=== PATIENT | female | born 1970 | race Hispanic/Latino ===

== ENCOUNTER 2016-10-11 19:22 | Emergency (ER) | payer OTHER ==
[~2016-10-11] VITALS: Ht 160 cm; Wt 81.8 kg
[2016-10-11 19:34] VITALS: BP 144/88; PULSE 75; RESP 16; O2SAT 100
--- NOTE | 2016-10-11 20:40 | ED.REPORT ---
HPI-Back Pain 40 and Over Date of Service Oct 11, 2016 ED Provider: Jaciel Mendiola MD Pt is a healthy 45 y/o female presenting to the ED c/o right flank pain with radiation to the right leg and groin onset 1 hour ago. She has had similar pain in the past and was diagnosed with small kidney stones. Pt c/o associated nausea , dysuria, urinary frequency. She denies hematuria, urinary or bladder incontinence, fever, chills, lower extremity weakness. Nursing Notes Stated Complaint: RIGHT SIDE BACK PAIN Chief Complaint: Back Pain or Injury Nursing Notes Reviewed: Yes Allergies: Uncoded Allergies: No Known Allergies (Allergy, Unknown, 02/09/04) TB IMMUNIZATION (Adverse Reaction, Unknown, 01/27/15) Scheduled Sulfamethoxazole/Trimeth 800-160 mg (Bactrim DS) 1 Each Tablet 1 TABLET PO BID Tamsulosin (Flomax) 0.4 Mg Capsule 0.4 MG PO DAILY Scheduled PRN Hydrocodone-Acetaminophen 5-325 mg (Hydrocodone-Acetaminophen 5-325 mg) 1 Each Tablet 1 TABLET PO Q4H PRN PRN For Pain General Time Seen by MD: 20:22 Chief Complaint Flank pain right Hx Obtained From: Patient Arrived By: Walk-in Sudden in Onset?: No Onset Occurred: 1 - 4 hours ago Symptom Duration: Since onset Caused by: Spontaneous/no mechanism Location: : Flank right Quality: Painful Severity: Current: Moderate Severity: Maximum: Moderate Recent Healthcare: Previous diagnosis Similar Sx Previous: Yes Past Medical History Past Medical History Hx kidney stones Hx UTI Past Surgical History denies Smoking History Never Smoker Social History Alcohol Use: Denies alcohol use Drug Use: Denies drug use Other Social History: Occupation lives with family Ambulatory Status Independent Review of Systems Constitutional: Denies: Chills, Fever Respiratory: Denies: Non-productive cough, Shortness of breath Cardiovascular: Denies: Chest pain, Dyspnea on exertion GI: Reports: Nausea, Denies: Abdominal pain, Diarrhea, Vomiting Female: Reports: Dysuria, Flank pain, Urinary frequency, Denies: Hematuria Neurologic: Denies: Bladder dysfunction, Bowel dysfunction, Numbness, Weakness Complete sys rev & neg: except as marked. Physical Exam Initial Vital Signs Vital Signs (First) Date Time Temp Pulse Resp B/P Pulse Ox O2 Delivery O2 Flow Rate FiO2 10/11/16 19:34 37.2 75 16 144/88 100 Room Air Initial VS: Reviewed, Vital signs normal Head / Eyes: Atraumatic, Normocephalic, PERRL ENT: Mucous membranes moist, Conjunctiva normal, No scleral icterus Neck: Supple, Full range of motion Extremities: Vascular intact, Neuro intact, No swelling, No tenderness Skin: Warm, Dry, No cyanosis Psychiatric: Mood/affect normal, Behavior normal, Normal thought content General/Constitutional: Awake, Alert, Cooperative, Not toxic appearing Distress / Hydration: Positive: Distress mild Appearance / Presentation: Positive: Uncomfortable Laying on left side Respiratory / Chest: Atraumatic, Breath sounds NL, Breath sounds = bilat, No respiratory distress, No rales, No rhonchi, No wheezing, No retractions, No stridor, No chest tenderness, No chest wall deformity, No crepitus Cardiovascular: Heart rate NL, Regular rhythm, Heart sounds NL, No gallop, No murmurs, No rubs, Cap refill not delayed, Peripheral circulation NL Abdomen: Atraumatic, Soft, Non-tender, No guarding, No rebound, No distention, No palpable mass Back: Full range of motion, Painless range of motion, No CVA tenderness Neurologic: Oriented X3, Speech NL, No motor deficits, No sensory deficits, CN II - XII intact, Cerebellar NL, Memory NL Interpretation & Diagnostics Interpretation & Diagnostics: CT KUB no contrast: IMPRESSION: 1. 4 mm diameter proximal right ureteral calculus associated with mild right hydronephrosis. Dictated by: Gerhard Farias M.D. on 10/11/2016 at 21:55 Approved by: Gerhard Farias M.D. on 10/11/2016 at 21:57 Lab Results Interpretation Result Diagram: 10/11/16 2100 10/11/16 2100 Test 10/11/16 20:30 10/11/16 21:00 Urine Color Yellow (YELLOW) Urine Appearance Hazy (CLEAR,HAZY) Urine pH 5.0 (5.0-8.0) Urine Specific [place] 1.030 (1.003-1.035) Urine Protein Tracemg/dL (NEG,TRACE) Urine Glucose (UA) Negativemg/dL (NEGATIVE) Urine Ketones Negativemg/dL (NEGATIVE) Urine Occult Blood Large (NEGATIVE) Urine Nitrite Negative (NEGATIVE) Urine Bilirubin Negative (NEGATIVE) Urine Urobilinogen Normalmg/dL (NORMAL) Urine Leukocyte Esterase Trace (NEGATIVE) Urine RBC 3-10/hpf (0-2) Urine WBC 0-5/hpf (0-5) Urine Epithelial Cells Few/hpf (NONE-MOD) Urine Crystals None seen (NONE SEEN) Urine Bacteria Few/hpf (NONE-FEW) Urine Hyaline Casts None/lpf (NONE) Urine Granular Casts None seen (NONE SEEN) Urine Waxy Casts None seen (NONE SEEN) Urine Red Blood Cell Casts None seen (NONE SEEN) Urine White Blood Cell Casts None seen (NONE SEEN) Urine Mucus Present (None Seen) Urine Trichomonas None seen (NONE SEEN) Urine Yeast None (NONE SEEN) Urinalysis Comment None Urine Culture Reflexed Indicated White Blood Count 11.8th/mm3 (3.8-10.1) Red Blood Count 4.95mil/mm3 (3.90-5.20) Hemoglobin 13.8g/dL (12.0-15.6) Hematocrit 41.1% (35.0-46.0) Mean Corpuscular Volume 83.0fL (81-100) Mean Corpuscular Hemoglobin 27.9pg (27.0-35.0) Mean Corpuscular Hemoglobin Concent 33.6% (32.0-37.0) Red Cell Distribution Width 13.7% (12.3-15.4) Platelet Count 265bil/L (150-400) Neutrophils (%) (Auto) 79.2% (40-74) Lymphocytes (%) (Auto) 13.8% (14-46) Monocytes (%) (Auto) 5.7% (4-12) Eosinophils (%) (Auto) 0.9% (0-5) Basophils (%) (Auto) 0.2% (0-3) Sodium Level 137mEq/L (134-144) Potassium Level 4.3mEq/L (3.5-5.2) Chloride Level 102mEq/L (97-108) Carbon Dioxide Level 22mmol/L (18-29) Blood Urea Nitrogen 14mg/dL (6-24) Creatinine 0.80mg/dL (0.57-1.00) Estimat Glomerular Filtration Rate 112mL/min (>59) Glucose Level 116mg/dL (60-99) Calcium Level 9.4mg/dL (8.5-10.1) Total Bilirubin 0.2mg/dL (0.0-1.2) Aspartate Amino Transf (AST/SGOT) 13U/L (0-50) Alanine Aminotransferase (ALT/SGPT) 12U/L (0-32) Alkaline Phosphatase 55U/L (25-150) Total Protein 7.5g/dL (6.4-8.4) Albumin 4.0g/dL (3.4-5.0) ECG Interpretation Time: 20:59 Interpreted by: ED physician Normal ECG Interpretation: Normal ECG w/ rate of... (66), Normal rate, Normal sinus rhythm, No acute ischemic changes, Normal QRS, Normal axis, Normal intervals, Adequate tracing Re-Eval/Medical Decision Med Decision/Clinical Course Patient is a generally healthy 45-year-old male with a history of kidney stones who presents the emergency department with colicky right flank pain and mild UTI symptoms. [id number] urine testing is equivocal for urinary tract infection. Here in the emergency room she is afebrile and hemodynamically stable though quite uncomfortable. Therefore, I treated with IV fluids, Zofran for nausea and hydromorphone for pain. She reported significant symptomatic improvement. Given possible concurrent UTI in the setting of likely kidney stone I did off to obtain a CT KUB and that should she have a significant obstructing ureteral stone in the setting of infection she may require emergent intervention. CT scan was obtained as above and demonstrated a relatively small right ureteral stone. Serial abdominal examinations were benign and she tolerated firm palpation in all 4 quadrants. There is no evidence of acute surgical abdomen. Labs notable as below: CBC: leukocytosis of 11.8, stable HCT CMP: Unremarkable, good renal function UA: large blood, trace leukocyte esterase, few bacteria HCG neg Here in the emergency room the patient remained afebrile, nontoxic in appearance and in no apparent distress. Patient was discussed with urologist on -call and we reviewed her presentation today. She is not felt to require admission and urinalysis is thought to likely be related to contamination as opposed to true UTI. That being said we have opted to treat her with 1 g of ceftriaxone and a course of Bactrim. Additionally she will be treated with Flomax, [place] for pain. She is advised to follow-up closely in urology clinic. Follow-up and return precautions were reviewed in detail including any worsening signs of UTI, fevers, chills or abdominal pain. She was provided with a urinary strainer. Prior to discharge follow-up and return precautions were reviewed in detail with the patient who verbalized understanding and agreement with the plan. The patient was discharged in stable condition. Re-Evaluation/Progress : Time of Eval: 21:57 Re-Evaluation/Progress Note: Pt rechecked. Informed pt of plan for treatment. Pt understands and agrees with plan for treatment. F/U instructions and RTER warnings given. All questions addressed. Consultation : Referral / Consult Name: Yoli Sauer MD Consulted With: Urology Call Returned at: 21:56 Flight Surveyor: Agrees with eval, Agrees with plan Note: Recommends d/c with abx. Counseled Regarding: Diagnosis, Lab results, Need for follow-up, When/why to return to ED Discharge & Departure Impression: Primary Impression: Calculus of proximal right ureter Additional Impressions: Hydronephrosis, right Hematuria Urinary tract infection Urinary tract infection type: site unspecified Hematuria presence: with hematuria Qualified Code: N39.0 - Urinary tract infection, site not specified Disposition: Home Discharge Condition All VS Reviewed: Yes Condition: Stable Patient Instructions: Nephrolithiasis (ED) Additional Instructions: Thank you for seeking care at the emergency room. It is difficult for us to make definitive diagnoses in the ED but we believe that you are experiencing pain from a kidney stone in your right ureter. The stone is quite small (4 mm) and should pass on its own. It may take a few days to pass since it is much closer to the kidney than the bladder. Our primary goal today in the ED was to evaluate you for any life-threatening conditions. Your evaluation was reassuring. You will be discharged with a prescription for antibiotics. Take these as directed. Take 1 [place] every 6 hours as needed for severe pain. See instructions below. Use the urine strainer as directed. You should follow-up with Urology next week. Call Wednesday to set up an appointment. The referral number can be found below. You should return to the ED immediately if you develop fever, chills, worsening pain, persistent vomiting, severe pain with urination, urinary frequency, lightheadedness, weakness or any other concerning signs or symptoms. Thank you for letting us partake in your care today. You have been prescribed a narcotic for pain relief. These drugs are usually combined with acetaminophen (Tylenol#3, Percocet, Darvocet, Anexsia, Vicodin) or aspirin (Empirin#3, Percodan, Synalogs-DC) for increased effect. Narcotics act on the central nervous system to reduce pain; they also impair mental alertness and physical abilities. We advise you not to drink alcohol, drive a car, or operate dangerous equipment when you are taking these drugs. You can lessen stomach irritation from your medicine by taking it with meals or a full glass of water. Common side effects of narcotics are: Nausea and vomiting, heartburn, constipation, dizziness, sleepiness, and mood changes. If you have bothersome side effects or symptoms of an allergic reaction (itching, hives, rash), stop taking your medicine and call your doctor or the emergency room right away. Please keep your narcotic medicine well out of the reach of children. Referrals: Yoli Sauer MD [facility] Scribe Attestation Portions of this note were transcribed by Srini Mcmahon. I, Dr. Mendiola personally performed the history, physical exam and medical decision-making; I reviewed and confirmed the accuracy of the information in the transcribed note. Signed by Joseph Jung, 10/11/16 - 2099 Jaciel Mendiola MD Oct 11, 2016 20:40 SRINI MCMAHON Oct 11, 2016 20:41
[2016-10-11] MEDS ORDERED: 0.9% Sodium Chloride 1,000 ML IV ONE ×2 (20:41→23:05)
[2016-10-11] MEDS ORDERED: Ondansetron 2 mg/mL 2 mL Inj IVPUSH ONE (20:45)
[2016-10-11 20:59] LABS: APPEARANCE,URINE HAZY (CLEAR,HAZY); COLOR,URINE YELLOW (YELLOW); OCCULT BLOOD,URINE LARGE (NEGATIVE); UROBILINOGEN,URINE NORMAL (NORMAL)
[2016-10-11] MEDS: HYDROmorphone 0.5 mg/0.5 mL iSecure Syringe IVPUSH PRN ×2 (21:03→21:31)
[2016-10-11 21:16] LABS: BASOPHILS % (AUTO) 0.2 % (0-3); EOSINOPHILS % (AUTO) 0.9 % (0-5); MONOCYTES % (AUTO) 5.7 % (4-12); Mean Corpuscular Hemoglobin 27.9 pg (27.0-35.0); NEUTROPHILS % (AUTO) 79.2 % (40-74); Platelet Count 265 bil/L (150-400)
[2016-10-11] MEDS ORDERED: TAMS0.4C98 PO (21:58)
[2016-10-11] MEDS ORDERED: SULF1TAB7 PO (21:58)
[2016-10-11] MEDS ORDERED: HYDR-4003 PO (21:58)
--- NOTE | 2016-10-11 21:58 | DRSVH ---
PROCEDURE: CT KUB ([id number]) INDICATIONS: R flank pain, concewrn for infected stone TECHNIQUE: Noncontrast 5 mm thick sections acquired from the diaphragms to the symphysis. 5 mm thick coronal an d sagittal reformats were then performed. For radiation dose reduction, the following was used: aut omated exposure control, adjustment of mA and/or kV according to patient size. COMPARISON: [facility] [place] , [place], KUB - CT ([facility]), 08/01/2008, 14:05. [facility] , CT, KUB - CT ([facility]), 05/11/2008, 8:03. FINDINGS: Image quality: Excellent. Lung bases: Lung bases are clear. Heart size is normal. Urinary system: Mild right renal enlargement and right perinephric fat stranding are present. There i s mild right hydronephrosis. Within the proximal right ureter, there is a 4 mm diameter calculus. No left hydronephrosis nor left nephrolithiasis. Left ureter is within normal limits. Urinary bladder is decompressed. Other solid organs: Liver and spleen are normal in size. Gallbladder is within normal limits. Panc reas is normal in contours. No adrenal nodules. Peritoneum and bowel: Unenhanced bowel loops demonstrate normal wall thickness and caliber. No free fluid or air. Normal appendix. Nodes and vessels: No retroperitoneal or mesenteric adenopathy by size criteria. Aorta and inferior vena cava are normal in caliber. Abdominal wall: No ventral hernias. Pelvis: No free pelvic fluid. No inguinal hernias or adenopathy. Bones: No suspicious bony lesions. No vertebral body compression fractures. IMPRESSION: 1. 4 mm diameter proximal right ureteral calculus associated with mild right hydronephrosis. Dictated by: Gerhard Farias M.D. on 10/11/2016 at 21:55 Approved by: Gerhard Farias M.D. on 10/11/2016 at 21:57
[2016-10-11] MEDS ORDERED: cefTRIAXone Inj 1,000 MG in Dextrose 5% Minibag Plus 50 ML IV ONE (22:00)
[2016-10-11] MEDS ORDERED: HYDROcodone-APAP 5-325 mg Tablet PO ONE (22:25)
[2016-10-11 22:44] VITALS: BP 118/71; PULSE 81; RESP 16; O2SAT 99
[2016-10-11 22:45] VITALS: BP 118/71; PULSE 81; RESP 16; O2SAT 99
[2016-10-11] MEDS ORDERED: ProchlorPERazine 5 mg/mL 2 mL Inj IVPUSH ONE (23:05)
[2016-10-11] MEDS ORDERED: Promethazine 50 mg Rectal Suppository RECTAL ONE (23:10)
[2016-10-12] MEDS ORDERED: PROM25SU46 RC (00:03)
[2016-10-12 00:12] VITALS: BP 114/75; PULSE 72; RESP 16; O2SAT 97
== END 2016-10-12 00:12 | disposition home or self-care (01) ==
LOC: SED 19:22
DX: N39.0 Urinary tract infection, site not specified (principal); N13.2 Hydronephrosis with renal and ureteral calculous obstruction; R31.9 Hematuria, unspecified
CPT/HCPCS: 36415; 74176; 80053; 81000; 81025; 85025; 87086; 87088; 93005; 96361; 96365; 96375; 99285; J0696; J1170; J1885; J2405; J7030